=== PATIENT | female | born 1940 | race Caucasian/White ===

== ENCOUNTER 2019-04-24 08:07 | Day surgery (SDC) | payer MEDICARE, OTHER ==
[~2019-04-24] VITALS: Ht 167.6 cm; Wt 53.6 kg
[2019-04-24] VITALS (11 sets, daily range): BP systolic 163–205; BP diastolic 66–94
[2019-04-24] MEDS ORDERED: NITR0.4T51 SL (08:41)
[2019-04-24] MEDS ORDERED: CHOL400T14 PO (08:41)
[2019-04-24] MEDS ORDERED: METF500T PO (08:41)
[2019-04-24] MEDS ORDERED: normal saline 1,000 ML IV SCH (08:45)
[2019-04-24] MEDS ORDERED: diphenhydrAMINE 25mg capsule PO PRN (08:45)
[2019-04-24] MEDS ORDERED: heparin 1,000unit/ml 10ml vial 10 ML ONE (09:03)
[2019-04-24] MEDS ORDERED: midazolam 2 mg/2 ml injection ONE (09:03)
[2019-04-24] MEDS ORDERED: fentaNYL/PF 50MCG/1 ML 2ML syringe ONE (09:03)
[2019-04-24] MEDS ORDERED: LIDOcaine 1% (10mg/ml)w/preservative injection 20ml MDV ONE (09:03)
[2019-04-24] MEDS ORDERED: iohexol 350 MG/1 ML 200ml bottle ONE (09:04)
[2019-04-24 09:23] LABS: BASOPHILS % (AUTO) 0.7 % (0-1); EOSINOPHILS # (AUTO) 0.5 X10'3 (0-0.9); EOSINOPHILS % (AUTO) 7.6 % (0-6); HEMATOCRIT 42.4 % (35.0-45.0); HEMOGLOBIN 14.3 g/dl (12.0-16.0); LYMPHOCYTES # (AUTO) 1.3 X10'3 (1.1-4.8); LYMPHOCYTES % (AUTO) 21.6 % (21-51); MEAN CORPUSCULAR HEMOGLOBIN 34.1 PG (27.0-31.0); MEAN CORPUSCULAR HGB CONC 33.7 g/dL (33.0-36.5); MEAN CORPUSCULAR VOLUME 101.4 FL (78-98); MEAN PLATELET VOLUME 9.9 FL (7.4-10.4); MONOCYTES # (AUTO) 0.4 X10'3 (0-0.9); MONOCYTES % (AUTO) 6.6 % (2-12); NEUTROPHILS # (AUTO) 3.8 X10'3 (1.8-7.7); NEUTROPHILS % (AUTO) 63.5 % (42-75); PLATELET COUNT 113 X10'3 (140-440); RED BLOOD COUNT 4.18 X10'6 (4.20-5.60); RED CELL DISTRIBUTION WIDTH 12.6 % (11.5-14.5); WHITE BLOOD COUNT 6.1 X10'3 (4.5-11.0)
[2019-04-24 09:25] LABS: ALBUMIN 3.7 G/DL (3.4-5.0); ANION GAP 7 (8-16); BLOOD UREA NITROGEN 18 MG/DL (7-18); CALCIUM 8.9 MG/DL (8.5-10.1); CHLORIDE 109 MMOL/L (99-107); GLUCOSE 128 MG/DL (70-104); MAGNESIUM 1.9 MG/DL (1.5-2.4); POTASSIUM 4.2 MMOL/L (3.5-5.1); SODIUM 145 MMOL/L (135-145); TOTAL CARBON DIOXIDE 29.1 MMOL/L (24-32); eGFR 61 ML/MIN
[2019-04-24] MEDS ORDERED: diphenhydrAMINE 50 mg/ml inj ONE (09:30)
[2019-04-24] MEDS ORDERED: clopidogrel 300mg tablet ONE (10:28)
[2019-04-24] MEDS ORDERED: cloNIDine 0.1 mg tablet PO ONE (10:50)
[2019-04-24] MEDS ORDERED: HYDROcodone/acetaminophen 10/325mg tab PO PRN (10:55)
[2019-04-24] MEDS ORDERED: HYDROcodone/acetaminophen 5mg/325mg tablet PO PRN (10:55)
[2019-04-24] MEDS ORDERED: ondansetron/PF 4mg/2ml inj IV PRN (10:55)
[2019-04-24] MEDS ORDERED: OXAZEpam 15mg capsule PO PRN (10:55)
[2019-04-24] MEDS ORDERED: proCHLORperazine 10 MG/2 ml inj IV PRN (10:55)
== END 2019-04-24 14:30 | disposition home or self-care (01) ==
LOC: SSTAY O 08:07
PROVIDERS: ATTEND Internal Medicine Cardiovascular Disease
DX: I70.213 Atherosclerosis of native arteries of extremities with intermittent claudication, bilateral legs (principal); I10 Essential (primary) hypertension; E11.9 Type 2 diabetes mellitus without complications; F17.290 Nicotine dependence, other tobacco product, uncomplicated; Z79.899 Other long term (current) drug therapy
CPT/HCPCS: 36415; 37225; 80048; 82948; 83735; 85025; 85610; 93005; 99152; 99153; C1714; C1769; C1894; J1200; J1644; J2001; J2250; J3010; J7030; Q9967; 36140; 36247; 37224; A6258; C1760; C2623

== ENCOUNTER 2019-12-15 10:37 | Day surgery (SDC) | payer BC ==
[~2019-12-15] VITALS: Ht 167.6 cm; Wt 56.0 kg
[2019-12-15] VITALS (12 sets, daily range): BP systolic 122–172; BP diastolic 56–75
[~2019-12-15 10:37] MED LIST: CHOL400T14 PO; METF500T PO; NITR0.4T51 SL
[2019-12-15] MEDS ORDERED: diphenhydrAMINE 25mg capsule PO PRN (11:10)
[2019-12-15] MEDS ORDERED: normal saline 1,000 ML IV SCH (11:10)
[2019-12-15 11:48] LABS: BASOPHILS % (AUTO) 0.7 % (0-1); EOSINOPHILS # (AUTO) 0.6 X10'3 (0-0.9); EOSINOPHILS % (AUTO) 10.1 % (0-6); HEMATOCRIT 39.6 % (35.0-45.0); HEMOGLOBIN 13.2 g/dl (12.0-16.0); LYMPHOCYTES % (AUTO) 16.8 % (21-51); MEAN CORPUSCULAR HEMOGLOBIN 33.6 PG (27.0-31.0); MEAN CORPUSCULAR HGB CONC 33.2 g/dL (33.0-36.5); MEAN PLATELET VOLUME 10.1 FL (7.4-10.4); MONOCYTES # (AUTO) 0.4 X10'3 (0-0.9); MONOCYTES % (AUTO) 6.4 % (2-12); NEUTROPHILS # (AUTO) 3.9 X10'3 (1.8-7.7); PLATELET COUNT 117 X10'3 (140-440); RED BLOOD COUNT 3.92 X10'6 (4.20-5.60); RED CELL DISTRIBUTION WIDTH 12.8 % (11.5-14.5); WHITE BLOOD COUNT 5.9 X10'3 (4.5-11.0)
[2019-12-15 11:54] LABS: ALBUMIN 3.5 G/DL (3.4-5.0); ANION GAP 8 (8-16); BLOOD UREA NITROGEN 17 MG/DL (7-18); BUN/CREATININE RATIO 17.5 (6.6-38.0); CALCIUM 9.1 MG/DL (8.5-10.1); CHLORIDE 108 MMOL/L (99-107); CREATININE 0.97 MG/DL (0.40-0.90); GLUCOSE 179 MG/DL (70-104); MAGNESIUM 1.6 MG/DL (1.5-2.4); POTASSIUM 3.8 MMOL/L (3.5-5.1); SODIUM 144 MMOL/L (135-145); TOTAL CARBON DIOXIDE 28.3 MMOL/L (24-32); eGFR 56 ML/MIN
[2019-12-15] MEDS ORDERED: ATOR20TA PO (12:00)
[2019-12-15] MEDS ORDERED: NAPR220C15 PO (12:00)
[2019-12-15] MEDS ORDERED: ASPI-10 PO (12:00)
[2019-12-15] MEDS ORDERED: ALBU8HFA PO (12:00)
[2019-12-15] MEDS ORDERED: PANT20TA2 PO (12:00)
[2019-12-15] MEDS ORDERED: METO-467 PO (12:00)
[2019-12-15] MEDS ORDERED: LISI-600 PO (12:00)
[2019-12-15] MEDS ORDERED: CLOP75TA15 PO (12:00)
[2019-12-15] MEDS ORDERED: midazolam 2 mg/2 ml injection ONE ×2 (12:37→13:43)
[2019-12-15] MEDS ORDERED: LIDOcaine 1% (10mg/ml)w/preservative injection 20ml MDV ONE (12:37)
[2019-12-15] MEDS ORDERED: iohexol 350MG/ML 100ml bottle IV ONE (12:37)
[2019-12-15] MEDS ORDERED: fentaNYL/PF 50MCG/1 ML 2ML syringe ONE (12:37)
[2019-12-15] MEDS ORDERED: heparin 1,000unit/ml 10ml vial 10 ML ONE (13:38)
[2019-12-15] MEDS ORDERED: hydrALAZINE 20mg/ml inj. IV ONE (13:55)
[2019-12-15] MEDS ORDERED: clopidogrel 300mg tablet ONE (14:25)
[2019-12-15] MEDS ORDERED: HYDROcodone/acetaminophen 5mg/325mg tablet PO PRN (15:00)
[2019-12-15] MEDS ORDERED: normal saline 1000ml 1,000 ML IV SCH (15:00)
[2019-12-15] MEDS ORDERED: ondansetron/PF 4mg/2ml inj IV PRN (15:00)
[2019-12-15] MEDS ORDERED: HYDROcodone/acetaminophen 10/325mg tab PO PRN (15:05)
[2019-12-15] MEDS ORDERED: proCHLORperazine 10 MG/2 ml inj IV PRN (15:05)
[2019-12-16] MEDS ORDERED: pneumococcal 23-VAL P-sac vacc 25 mcg/0.5ml vial IMVAC ONE (10:00)
== END 2019-12-15 18:25 | disposition home or self-care (01) ==
LOC: SSTAY O 10:37 → MED 3N 10:43 → SSTAY O 18:25
PROVIDERS: ATTEND Internal Medicine Cardiovascular Disease
DX: I70.203 Unspecified atherosclerosis of native arteries of extremities, bilateral legs (principal); M79.605 Pain in left leg; M79.604 Pain in right leg; R07.89 Other chest pain; I25.10 Atherosclerotic heart disease of native coronary artery without angina pectoris; I25.2 Old myocardial infarction; Z23 Encounter for immunization
CPT/HCPCS: 36415; 37226; 80048; 82948; 83735; 85025; 85610; 90471; 90732; 93005; 99152; 99153; C1769; C1876; C1894; J0360; J1644; J2001; J2250; J3010; J7030; Q0163; Q9967; A4620; A6258; C1760; C2623

== ENCOUNTER 2021-07-28 08:50 | Outpatient (CLI) | payer MEDICARE ==
[~2021-07-28 08:50] MED LIST changes: +ALBU8HFA PO; +ASPI-10 PO; +ATOR20TA PO; -CHOL400T14 PO; +CLOP75TA15 PO; +LISI20TA28 PO; +METO-467 PO; +NAPR220C15 PO; +PANT20TA2 PO
[2021-07-28 10:42] LABS: BASOPHILS % (AUTO) 0.5 % (0-1); EOSINOPHILS # (AUTO) 0.3 X10'3 (0-0.9); EOSINOPHILS % (AUTO) 3.1 % (0-6); LYMPHOCYTES # (AUTO) 0.8 X10'3 (1.1-4.8); MEAN CORPUSCULAR HEMOGLOBIN 33.7 PG (27.0-31.0); MEAN CORPUSCULAR HGB CONC 32.7 g/dL (33.0-36.5); MEAN CORPUSCULAR VOLUME 102.9 FL (78-98); MEAN PLATELET VOLUME 8.4 FL (7.4-10.4); MONOCYTES # (AUTO) 0.5 X10'3 (0-0.9); MONOCYTES % (AUTO) 6.5 % (2-12); NEUTROPHILS # (AUTO) 6.4 X10'3 (1.8-7.7); NEUTROPHILS % (AUTO) 79.9 % (42-75); PRE OP HEMATOCRIT 32.9 % (35.0-45.0); PRE OP PLATELET COUNT 276 X10'3 (140-440); RED CELL DISTRIBUTION WIDTH 15.1 % (11.5-14.5)
[2021-07-28 10:49] LABS: PRE OP HEMOGLOBIN 10.8 g/dL (12.0-16.0)
[2021-07-28 10:59] LABS: BLOOD UREA NITROGEN 23 MG/DL (7-18); BUN/CREATININE RATIO 27.4 (6.6-38.0); CALCIUM 8.4 MG/DL (8.5-10.1); CHLORIDE 109 MMOL/L (99-107); CREATININE 0.84 MG/DL (0.40-0.90); PRE OP ANION GAP 7 (8-16); PRE OP BILIRUB, TOTAL 0.5 MG/DL (0.0-1.0); PRE OP GLUCOSE 101 MG/DL (70-104); PRE OP POTASSIUM 4.3 MMOL/L (3.4-5.1); PRE OP SODIUM 143 MMOL/L (135-145); TOTAL CARBON DIOXIDE 27.3 MMOL/L (24-32); TOTAL PROTEIN 6.4 G/DL (6.4-8.2); eGFR 66 ML/MIN
[2021-07-28 11:00] LABS: ALBUMIN 2.9 G/DL (3.4-5.0); ALBUMIN/GLOBULIN RATIO 0.8 (1.1-1.5); ALKALINE PHOSPHATASE 232 IU/L (46-116); PRE OP ALT 17 U/L (30-65); PRE OP AST 15 U/L (10-37)
[2021-07-28 11:15] LABS: HEMOGLOBIN A1C 5.5 % (4.5-6.2)
[2021-07-28] MEDS ORDERED: SENN-263 PO (11:25)
[2021-07-28] MEDS ORDERED: OMEP-50 PO (11:25)
[2021-07-28] MEDS ORDERED: NICO-687 TOP (11:25)
[2021-07-28] MEDS ORDERED: DOCU-148 PO (11:25)
[2021-07-28] MEDS ORDERED: CELE200C PO (11:26)
[2021-07-28] MEDS ORDERED: HYDR-3964 PO (11:27)
[2021-07-28 11:28] LABS: CLARITY,URINE TURBID (Clear); COLOR,URINE YELLOW (Yellow); UA COLLECTION TYPE FOLEY CATH
[2021-07-28 11:29] LABS: GLUCOSE, URINE NEGATIVE (Neg); KETONES,URINE NEGATIVE (Neg); NITRITES, URINE POSITIVE (Neg); OCCULT BLOOD,URINE LARGE (Neg); PROTEIN,URINE 100 mg/dl (Neg)
[2021-07-28 11:30] LABS: LEUKOCYTE ESTERASE ,URINE MODERATE (Neg); UROBILINOGEN,URINE 0.2 E.U/dL (0.2-1.0)
[2021-07-28 11:35] LABS: BACTERIA,URINE 3+ /HPF (Neg); MUCUS STRANDS MODERATE /LPF (Neg); SQUAMOUS EPITHELIAL CELL,UR FEW /LPF (FEW); WBC,URINE TNTC /HPF (0-4)
[2021-07-28 11:36] LABS: WBC CLUMPS,URINE MODERATE /HPF (NEGATIVE)
== END 2021-07-28 23:59 | disposition home or self-care (01) ==
LOC: PRE-OP 08:50 → EDSTATUS 07-31 14:00
PROVIDERS: ATTEND Orthopaedic Surgery
DX: Z01.812 Encounter for preprocedural laboratory examination (principal); I44.7 Left bundle-branch block, unspecified; Z20.822 Contact with and (suspected) exposure to COVID-19
CPT/HCPCS: 36415; 71046; 80053; 81001; 83036; 85025; 87077; 87088; 87186; 87635; 93005